=== PATIENT | female | born 1995 | race African-American/Black ===

== ENCOUNTER 2022-03-10 22:02 | Emergency (ER) | payer OTHER ==
[2022-03-10 22:12] VITALS: BP 111/72; PULSE 82; RESP 18; TEMP 98.3; BMI 19.5
== END 2022-03-11 00:59 | disposition home or self-care (01) ==
LOC: JER 22:02
DX: F41.9 Anxiety disorder, unspecified (principal); R07.89 Other chest pain
CPT/HCPCS: 93005; 93010; 99283-25